=== PATIENT | male | born 1960 ===

== ENCOUNTER 2024-01-12 10:34 | Outpatient (REF) | payer OTHER, SELFPAY | END 2024-01-12 10:35 | disposition home or self-care (01) | LOC: HO.SH 10:34 | PROVIDERS: Visit Provider Internal Medicine | DX: Z01.118 Encounter for examination of ears and hearing with other abnormal findings (principal); H90.3 Sensorineural hearing loss, bilateral | CPT/HCPCS: 92557 ==